=== PATIENT | female | born 1965 | race Hispanic/Latino ===

== ENCOUNTER 2021-07-16 03:57 | Observation (INO) | payer OTHER ==
[~2021-07-16] VITALS: Ht 157.5 cm; Wt 78.0 kg
[~2021-07-16 03:57] MED LIST: AMLO-258 PO; ESCI-8 PO; GLIM4TAB36 PO; LISI1TAB53 PO; METF-446 PO
[2021-07-16] MEDS ORDERED: HYDRALAZINE 20MG/ML VIAL IV ONE ×2 (06:00→07:00)
[2021-07-16 06:35] LABS: ALBUMIN 3.4 g/dL (3.5-5.0); BILIRUBIN,TOTAL 0.6 mg/dL (0.2-1.0); CREATININE 1.1 mg/dL (0.5-1.5); MAGNESIUM 1.6 mg/dL (1.80-2.40); POTASSIUM 4.4 mmol/L (3.5-5.1); TOTAL PROTEIN, SERUM 7.2 g/dL (6.0-8.3)
[2021-07-16 06:55] LABS: EOSINOPHILS % (AUTO) 1.1 % (0.0-8.0); HEMATOCRIT 35.8 % (36-48); LYMPHOCYTES % (AUTO) 29.4 % (21.0-51.0); MEAN CORPUSCULAR HGB CONC 33.8 g/dL (32.0-36.0); MEAN CORPUSCULAR VOLUME 88.8 fL (79-99); MONOCYTES % (AUTO) 5.4 % (3.0-13.0); NEUTROPHILS % (AUTO) 62.6 % (40.0-77.0); PLATELET COUNT (AUTO) 256 K/uL (130-400); RED BLOOD CELL COUNT(AUTO) 4.03 MIL/uL (4.00-5.50); WHITE BLOOD COUNT (AUTO) 8.3 K/uL (4.8-10.8)
[2021-07-16] MEDS ORDERED: METF-446 PO (07:10)
[2021-07-16] MEDS ORDERED: FURO-152 PO (07:10)
[2021-07-16] MEDS ORDERED: CARV3.1262 PO (07:10)
[2021-07-16] MEDS ORDERED: GLIP5TAB11 PO (07:10)
[2021-07-16] MEDS ORDERED: LISI5TAB21 PO (07:10)
[2021-07-16] MEDS ORDERED: ASPI-1197 PO (07:10)
[2021-07-16 07:44] LABS: PROTHROMBIN TIME 10.9 SEC (9.6-11.6)
[2021-07-16] MEDS: LISINOPRIL 10 MG TABLET PO SCH ×2 (08:00→10:09)
[2021-07-16] MEDS: HYDROCHLOROTHIAZIDE 25 MG TABLET PO SCH ×2 (08:00→10:09)
[2021-07-16] MEDS ORDERED: ONDANSETRON 4MG INJ IV PRN (08:00)
[2021-07-16] MEDS ORDERED: ACETAMINOPHEN 325 MG TAB PO PRN ×2 (08:00)
[2021-07-16] MEDS: METOPROLOL SUCCINATE 50 MG TAB.SR.24H PO SCH ×2 (08:00→10:09)
[2021-07-16] MEDS ORDERED: GLIPIZIDE 5 MG TABLET PO SCH (08:30)
[2021-07-16] MEDS ORDERED: FUROSEMIDE 40 MG TABLET PO SCH (09:00)
[2021-07-16] MEDS: FAMOTIDINE 20MG TAB PO SCH ×2 (10:05→20:14)
[2021-07-16] MEDS: ENOXAPARIN SODIUM 40 MG/0.4 ML SYRINGE SQ SCH (10:05)
[2021-07-16] MEDS: METFORMIN HCL 850 MG TABLET PO SCH ×2 (10:05→17:35)
[2021-07-16] MEDS ORDERED: AMOX/CLAV 875/125MG TAB PO SCH (14:30)
[2021-07-16 15:55] VITALS: BP 153/97
[2021-07-16] MEDS ORDERED: LISINOPRIL 10 MG TABLET PO SCH (19:00)
[2021-07-16] MEDS ORDERED: HYDROCHLOROTHIAZIDE 25 MG TABLET PO ONE (19:00)
[2021-07-16 20:13] VITALS: BP_SYST 145; BP_DIAS 85; BP_DIAS 87
[2021-07-16] MEDS: CARVEDILOL 6.25 MG TABLET PO SCH (20:14)
[2021-07-16 20:18] VITALS: BP 145/85
[2021-07-16] MEDS ORDERED: ATORVASTATIN 40 MG TABLET PO SCH (21:00)
[2021-07-16 23:24] VITALS: BP 155/73
[2021-07-17 04:20] VITALS: BP 98/70
[2021-07-17 05:21] LABS: HEMATOCRIT 37.3 % (36-48); MEAN CORPUSCULAR HEMOGLOBIN 30.3 pg (27.0-33.0); MEAN CORPUSCULAR HGB CONC 32.7 g/dL (32.0-36.0); MEAN CORPUSCULAR VOLUME 92.6 fL (79-99); RED BLOOD CELL COUNT(AUTO) 4.03 MIL/uL (4.00-5.50); RED CELL DISTRIBUTION WIDTH 13.1 % (11.0-15.5); WHITE BLOOD COUNT (AUTO) 7.9 K/uL (4.8-10.8)
[2021-07-17 05:29] LABS: HEMOGLOBIN A1C 9.7 % (4.0-6.0)
[2021-07-17 05:33] LABS: CREATININE 1.5 mg/dL (0.5-1.5); POTASSIUM 4.2 mmol/L (3.5-5.1)
[2021-07-17 07:20] VITALS: BP 134/73
[2021-07-17] MEDS ORDERED: METF-446 PO (08:47)
[2021-07-17] MEDS ORDERED: ATOR40TA69 PO (08:47)
[2021-07-17] MEDS ORDERED: CARV6.2579 PO (08:47)
[2021-07-17] MEDS ORDERED: AEC81 PO (08:47)
[2021-07-17] MEDS ORDERED: LISI40TA9 PO (08:47)
[2021-07-17] MEDS ORDERED: AMOX1TAB16 PO (08:47)
[2021-07-17] MEDS ORDERED: GLIP5TAB11 PO (08:47)
[2021-07-17] MEDS ORDERED: GLIMEPIRIDE 2 MG TABLET PO SCH (09:00)
[2021-07-17] MEDS ORDERED: LISINOPRIL 20 MG TABLET PO SCH (09:00)
[2021-07-17] MEDS ORDERED: AMOX/CLAV 875/125MG TAB PO SCH (09:00)
[2021-07-17] MEDS ORDERED: HYDROCHLOROTHIAZIDE 25 MG TABLET PO SCH (09:00)
[2021-07-17] MEDS ORDERED: ASPIRIN 81 MG EC TAB PO SCH (09:00)
[2021-07-17] MEDS: ENOXAPARIN SODIUM 40 MG/0.4 ML SYRINGE SQ SCH (10:39)
[2021-07-17 10:50] VITALS: BP 134/73
[2021-07-17] MEDS: CARVEDILOL 6.25 MG TABLET PO SCH (10:50)
[2021-07-17] MEDS: FAMOTIDINE 20MG TAB PO SCH (10:50)
[2021-07-17] MEDS: METFORMIN HCL 850 MG TABLET PO SCH (10:57)
== END 2021-07-17 13:00 | disposition home or self-care (01) ==
LOC: EDH 03:57 → EDHIP 03:58 → UNDOADMOB 07:48 → 3AH 15:22
PROVIDERS: ADMIT Internal Medicine; ATTEND Internal Medicine
DX: I16.0 Hypertensive urgency (principal); Z20.822 Contact with and (suspected) exposure to COVID-19; J32.0 Chronic maxillary sinusitis; E11.65 Type 2 diabetes mellitus with hyperglycemia; I25.10 Atherosclerotic heart disease of native coronary artery without angina pectoris; E78.5 Hyperlipidemia, unspecified; I11.0 Hypertensive heart disease with heart failure; I50.20 Unspecified systolic (congestive) heart failure; E88.81 Metabolic syndrome and other insulin resistance; I25.5 Ischemic cardiomyopathy; Z79.899 Other long term (current) drug therapy; Z79.82 Long term (current) use of aspirin; Z95.1 Presence of aortocoronary bypass graft; Z91.19 Patient's noncompliance with other medical treatment and regimen
CPT/HCPCS: 36415 ×2; 70450; 71045; 80048; 80053; 80061; 82550; 82948 ×4; 83036; 83735; 83880 ×2; 84484; 85025; 85027; 85610; 87635; 93005 ×2; 96372 ×2; 96374; 99285; G0378 ×29; J0360; J1650 ×2

== ENCOUNTER → 2022-09-13 | Outpatient (CLI) | payer MEDICAID ==
[~2022-09-13] MED LIST changes: +AEC81 PO; -AMLO-258 PO; +AMOX1TAB16 PO; +ATOR40TA69 PO; +CARV6.2579 PO; -ESCI-8 PO; -GLIM4TAB36 PO; +GLIP5TAB11 PO; -LISI1TAB53 PO; +LISI40TA9 PO
== END | disposition home or self-care (01) ==
LOC: RAH 12:43
PROVIDERS: ATTEND Internal Medicine
DX: M25.511 Pain in right shoulder (principal); M89.8X2 Other specified disorders of bone, upper arm; M89.8X6 Other specified disorders of bone, lower leg
CPT/HCPCS: 73030; 73060; 73590

== ENCOUNTER → 2022-09-28 | Outpatient (CLI) | payer MEDICAID | END | disposition home or self-care (01) | LOC: RAH 12:49 | PROVIDERS: ATTEND Radiology Diagnostic Radiology | DX: S80.01XA Contusion of right knee, initial encounter (principal); M17.11 Unilateral primary osteoarthritis, right knee; M79.89 Other specified soft tissue disorders; X58.XXXA Exposure to other specified factors, initial encounter; Y93.89 Activity, other specified; Y92.89 Other specified places as the place of occurrence of the external cause; Y99.8 Other external cause status | CPT/HCPCS: 73562 ==

== ENCOUNTER 2023-07-05 09:43 | Emergency (ER) | payer MEDICARE ==
[~2023-07-05] VITALS: Ht 162.6 cm; Wt 74.8 kg
[~2023-07-05 09:43] MED LIST changes: -AEC81 PO; +AMLO-257 PO; -AMOX1TAB16 PO; +ASPI-1197 PO; -ATOR40TA69 PO; +BENA40TA92 PO; +CARV6.25 PO; -CARV6.2579 PO; +CLOP-31 PO; +DULO60CA64 PO; +EMPA25TA PO; +FOLI0.8T43 PO; -GLIP5TAB11 PO; +HYDR12.54 PO; -LISI40TA9 PO; -METF-446 PO; +ONDA-104 PO; +SEMA2PEN SQ
[2023-07-05 10:45] VITALS: BP 162/93; PULSE 74; RESP 18; O2SAT 99
[2023-07-05 11:14] LABS: CREATININE 1.4 mg/dL (0.5-1.5)
[2023-07-05 11:18] LABS: BASOPHILS # (AUTO) 0.06 K/uL (0.00-0.20); EOSINOPHILS # (AUTO) 0.06 K/uL (0.00-0.70); IMMATURE GRANULOCYTE ABSOLUTE 0.01 K/uL (0-1); LYMPHOCYTES # (AUTO) 2.1 K/uL (1.0-4.8); LYMPHOCYTES % (AUTO) 34.4 % (21.0-51.0); MEAN CORPUSCULAR HEMOGLOBIN 31.1 pg (27.0-33.0); MEAN CORPUSCULAR VOLUME 88.8 fL (79-99); MONOCYTES # (AUTO) 0.4 K/uL (0.1-1.0); MONOCYTES % (AUTO) 6.3 % (3.0-13.0); NEUTROPHILS # (AUTO) 3.4 K/uL (1.8-7.7); NEUTROPHILS % (AUTO) 57.1 % (40.0-77.0); PLATELET COUNT (AUTO) 204 K/uL (130-400); RED BLOOD CELL COUNT(AUTO) 4.28 MIL/uL (4.00-5.50); RED CELL DISTRIBUTION WIDTH 12.9 % (11.0-15.5)
[2023-07-05 11:19] LABS: ALBUMIN 3.1 g/dL (3.5-5.0); BILIRUBIN,TOTAL 0.6 mg/dL (0.2-1.0); TOTAL PROTEIN, SERUM 6.5 g/dL (6.0-8.3)
[2023-07-05] MEDS ORDERED: INSULIN HUMULIN R 100 UNIT/ML 3ML ONE (13:17)
[2023-07-05] MEDS ORDERED: INSULIN HUMULIN R 100 UNIT/ML 3ML IV ONE (13:30)
[2023-07-05 18:37] LABS: AMPHET/METH SCREEN,URINE NEGATIVE (NEGATIVE); BARBITURATE SCREEN, URINE NEGATIVE (NEGATIVE); BENZODIAZEPINES SCREEN,URINE NEGATIVE (NEGATIVE); CANNABINOID SCREEN,URINE NEGATIVE (NEGATIVE); COCAINE SCREEN,URINE NEGATIVE (NEGATIVE); OPIATE SCREEN,URINE NEGATIVE (NEGATIVE); PHENCYCLIDINE SCREEN,URINE NEGATIVE (NEGATIVE)
[2023-07-05 18:43] LABS: APPEARANCE,URINE CLEAR (CLEAR); BILIRUBIN,URINE NEGATIVE (NEGATIVE); COLOR,URINE LIGHT-YELLOW (YELLOW); GLUCOSE, URINE (UA) >=1000 mg/dL (NEGATIVE); KETONES,URINE NEGATIVE (NEGATIVE); LEUKOCYTE ESTERASE ,URINE NEGATIVE Leu/uL (NEGATIVE); NITRATE,URINE NEGATIVE (NEGATIVE); OCCULT BLOOD,URINE NEGATIVE (NEGATIVE); PROTEIN,URINE 20 mg/dL (NEGATIVE); UROBILINOGEN,URINE 0.2 mg/dL (0.2-1.0)
[2023-07-05 19:25] LABS: ADD UA MICROSCOPIC YES
[2023-07-05 19:27] LABS: MUCUS,URINE RARE LPF (None Seen); RBC,URINE 0-1 /HPF (0-1); SQUAMOUS EPITHELIAL CELL,UR RARE /HPF (0-2)
[2023-07-05] MEDS ORDERED: METF-444 PO (20:33)
== END 2023-07-05 20:51 | disposition home or self-care (01) ==
LOC: EDH 09:43
DX: G47.10 Hypersomnia, unspecified (principal); E10.65 Type 1 diabetes mellitus with hyperglycemia; E86.0 Dehydration; I10 Essential (primary) hypertension; Z79.82 Long term (current) use of aspirin; Z79.899 Other long term (current) drug therapy; Z98.890 Other specified postprocedural states
CPT/HCPCS: 99285; 96374; 70450; 80053; 80305; 85025; 82948; 82010; 36415; 81001; J1815